=== PATIENT | male | born 1945 | race Caucasian/White ===

== ENCOUNTER → 2023-05-28 | Outpatient (CLI) | payer MEDICARE ==
--- NOTE | 2023-05-28 13:00 | MR ---
EXAMINATION TYPE: MR lumbar spine wo con DATE OF EXAM: 05/28/2023 COMPARISON: None HISTORY: Lower back pain, RLE radiculopathy. CONTRAST: 0 mL intravenous Gadobutrol. TECHNIQUE: Multiplanar, multisequence images of the lumbar spine were acquired. FINDINGS: L5-S1: There is a large central disc herniation with moderate anterior thecal sac compression. No AP spinal canal stenosis is present. Moderate bilateral foraminal stenosis is present. L4-L5: Broad-based disc bulge is present with anterior thecal sac flattening. Facet hypertrophy and l igamentum flavum laxity is present. These are contributing to spinal canal stenosis. Moderate bilater al foraminal stenosis is present. L3-L4: Broad-based disc bulge is present with anterior thecal sac flattening. Facet hypertrophy with mild ligamentum flavum laxity is mild posterior lateral thecal sac compression. No AP spinal canal st enosis is present. Annular tear centrally is not excluded. Neural foramen are patent. L2-L3: No significant disc bulge or disc herniation. No spinal canal stenosis. No foraminal stenosi s. L1-L2: No significant disc bulge or disc herniation. No spinal canal stenosis. No foraminal stenosi s. T12-L1: No significant disc bulge or disc herniation. No spinal canal stenosis. No foraminal stenos is. IMPRESSION: 1. Central disc bulge at L4-5 and L5-S1 with moderate anterior thecal sac compression. Some spinal ca nal stenosis is through the L4-5 level. 2. Facet hypertrophy at L3-4 through L5-S1. 3. Moderate bilateral foraminal stenosis L4-5, L5-S1.
== END | disposition home or self-care (01) ==
LOC: RADMRIMAIN 10:54
PROVIDERS: ATTEND Physical Medicine & Rehabilitation
DX: M51.16 Intervertebral disc disorders with radiculopathy, lumbar region (principal); M48.061 Spinal stenosis, lumbar region without neurogenic claudication; M47.27 Other spondylosis with radiculopathy, lumbosacral region; M99.73 Connective tissue and disc stenosis of intervertebral foramina of lumbar region
CPT/HCPCS: 72148

== ENCOUNTER 2023-10-09 07:11 | Day surgery (SDC) | payer MEDICARE ==
[~2023-10-09 07:11] MED LIST: ALPRAZolam 0.25 MG TAB PO PRN; ASPIRIN 325 MG TAB PO STA; ATORVASTATIN 80 MG TAB PO STA; HEPARIN SODIUM,PORCINE (1 ML) 2,500 UNIT in SODIUM CHLORIDE 0.9% 250 ML IRRIGATION PRN; HEPARIN SODIUM,PORCINE 10,000 UNIT in SODIUM CHLORIDE 0.9% 1,000 ML IRRIGATION PRN; NITROGLYCERIN SL TABS 0.4 MG TAB SUBLINGUAL PRN; SODIUM CHLORIDE 0.9% 1,000 ML in EMPTY BAG 1 BAG IV SCH
[2023-10-09] MEDS: SODIUM CHLORIDE 0.9% 1,000 ML IV ONE (07:28)
[2023-10-09] MEDS: ALPRAZolam 0.5 MG TAB PO PRN (07:56)
[2023-10-09 07:59] LABS: Basophils # (A) 0.1 k/uL (0-0.2); Basophils % (A) 1 %; Eosinophils # (A) 0.5 k/uL (0-0.7); Eosinophils % (A) 6 %; HCT 40.9 % (39.0-53.0); HGB 13.3 gm/dL (13.0-17.5); Lymphocytes # (A) 2.6 k/uL (1.0-4.8); Lymphocytes % (A) 31 %; MCH 31.6 pg (25.0-35.0); MCHC 32.5 g/dL (31.0-37.0); Mean Platelet Volume 8.1; Monocytes # (A) 0.5 k/uL (0-1.0); Monocytes % (A) 6 %; Neutrophils # (A) 4.6 k/uL (1.3-7.7); Neutrophils % (A) 55 %; Platelet Count 365 k/uL (150-450); RBC 4.21 m/uL (4.30-5.90); RDW 12.7 % (11.5-15.5); WBC 8.4 k/uL (3.8-10.6)
[2023-10-09 08:03] VITALS: RESP 16; TEMP 98.2
[2023-10-09 08:09] LABS: African American GFR (CKD) >90 (>60 ml/min/1.73 sqM); Anion Gap 7 mmol/L; Blood Urea Nitrogen 12 mg/dL (9-20); Calcium 8.9 mg/dL (8.4-10.2); Carbon Dioxide 25 mmol/L (22-30); Chloride 105 mmol/L (98-107); Glucose 105 mg/dL (74-99); Non-African American GFR(CKD) 86 (>60 ml/min/1.73 sqM); Sodium 137 mmol/L (137-145)
[2023-10-09] MEDS ORDERED: HEPARIN SODIUM 1,000 UN/ML (10ML VL) ONE (08:40)
[2023-10-09] MEDS ORDERED: fentaNYL (PF) 50 MCG/ML 2 ML AMP ONE (08:40)
[2023-10-09] MEDS: fentaNYL (PF) 50 MCG/1 ML VIAL IVP ONE (09:23)
[2023-10-09] MEDS: LIDOCAINE 2% (PF) 20 MG/ML 5 ML VIAL SQ ONE (09:23)
[2023-10-09] MEDS: VERAPAMIL 2.5 MG/ML 4 ML VIAL INTRAARTER ONE (09:24)
[2023-10-09] MEDS: HEPARIN SODIUM 1,000 UN/ML (10ML VL) IVP ONE (09:27)
[2023-10-09] MEDS: IOPAMIDOL-370 100ML BTL INTRATHECA ONE (09:36)
[2023-10-09] MEDS ORDERED: RX INFO: IV CONTRAST WAS GIVEN 1 EACH MISC MISCELLANE PRN (09:48)
--- NOTE | 2023-10-09 09:53 | P.CARDCATH ---
Date of Procedure: 10/09/23 Description of Procedure: Cardiac Catheterization: The patient is a 77-year-old male with a known history of hyperlipidemia, history of CAD status post stenting 1996 who has been complaining of mild dyspnea and had an abnormal MPI with lateral wall ischemia. Recommendations were made regarding cardiac catheterization, the risks and the complications were discussed with the patient who is in full understanding and agreement. Procedure Description: Patient was brought to crime lab technician in fasting semi-sedated state after receiving Fentanyl and Benadryl achieiving moderate conscious sedated state. Using Xylocaine Anesthesia and modified Seldinger technique, a 6-Monegasque sheath was introduced in the right radial artery . Subsequently, selective coronary angiography was performed using a 5-Monegasque 3.5 bend Uriel catheter. Multiple views of the coronary artery including hemiaxial views were obtained. The 5 Monegasque pigtail catheter was used to cross the aortic valve and LVEDP was calculated. Following that, catheter and sheath were removed. Hemostasis was obtained with deployment of vascular band . There was no immediate complication. Patient was returned to room in stable condition. Of note, the patient received a total of 5000 units of intravenous heparin as well as intra-arterial verapamil. Findings: Fluoroscopy: Severe calcifications of all the coronary arteries was noted. Left main: This is a large size vessel, bifurcating into LAD and left circumflex, left main has no significant obstructive disease LAD: This is a large size vessel, reaching to the apex with a wraparound apex segment, giving rise to 3 small diagonal branch. The stented segment in the proximal LAD is patent with mild in-stent restenosis of 30%. There is mild intimal disease in the mid LAD with no high-grade stenosis. Left circumflex: This is a small nondominant vessel, giving rise to 2 obtuse marginal branch. The ostium of the left circumflex is calcified and has 60 to 70% stenosis, the rest of the vessel has no high-grade stenosis RCA: This is a large dominant vessel, bifurcating distally to PDA and PLV. The mid right coronary artery has a 50% plaque the distal vessel has mild intimal disease with no high-grade stenosis Left Ventriculogram: Not performed Hemodynamics: There was no gradient across aortic valve, LVEDP was 12-14 mmHg Conclusion: 1. Heavily calcified coronary arteries 2. Patent stent to the LAD with mild in-stent restenosis 3. Moderate to significant obstructive disease involving the ostium of the left circumflex 4. Mild to moderate disease in the mid RCA Recommendations: I have recommended to continue medical therapy. At this time I would not recommend to proceed with any intervention on the left circumflex in view of the location and the calcifications, continuing aggressive coronary risks modification will be done. The findings and the recommendations were discussed with the patient and the family and they were in full understanding and agreement. Duration of sedation is 14 minutes.
[2023-10-09] MEDS ORDERED: SODIUM CHLORIDE 0.9% 1,000 ML IV SCH (10:00)
[2023-10-09 12:46] VITALS: BP 138/62; PULSE 62
[2023-10-09] MEDS ORDERED: ATORVASTATIN 10 MG TAB PO SCH (21:00)
[2023-10-09] MEDS ORDERED: ASPIRIN 81 MG PO SCH (21:00)
[2023-10-09] MEDS ORDERED: MONTELUKAST 10 MG TAB PO SCH (21:00)
[2023-10-10] MEDS ORDERED: ISOSORBIDE MONONITRATE ER 30 MG TAB.ER.24H PO SCH (09:00)
== END 2023-10-09 13:50 | disposition home or self-care (01) ==
LOC: CATHCVL 07:11
PROVIDERS: ATTEND Internal Medicine Interventional Cardiology
DX: I25.10 Atherosclerotic heart disease of native coronary artery without angina pectoris (principal); I10 Essential (primary) hypertension; E78.2 Mixed hyperlipidemia; F17.210 Nicotine dependence, cigarettes, uncomplicated; Z79.82 Long term (current) use of aspirin; Z79.899 Other long term (current) drug therapy
CPT/HCPCS: 93458; 80048; 85025; C1769 ×2; C1894; J1644; Q9967; J2001; J3010